=== PATIENT | male | born 1945 ===

== ENCOUNTER 2024-11-02 05:16 | Day surgery (SDC) | payer OTHER ==
[2024-10-25 07:03] LABS: HEMATOCRIT 39.1 % (39.0-48.0); HEMOGLOBIN 12.9 g/dL (13-16.00); MEAN CELL VOLUME 85.3 fL (80.0-100.00); MEAN CORPUSCULAR HEMOGLOBIN 28.2 pg (27.00-32.0); MEAN CORPUSCULAR HGB CONC 33.1 g/dl (32.0-36.0); PLATELET COUNT 163 K/uL (150-450); RED BLOOD COUNT 4.58 M/uL (4.00-6.00); RED CELL DISTRIBUTION WIDTH 15.4 % (11.5-14.5)
[2024-10-25 07:20] LABS: URINE APPEARANCE Clear; URINE BILIRRUBIN Negative (NEGATIVE); URINE BLOOD Negative; URINE COLOR Yellow; URINE GLUCOSE Negative (NEGATIVE); URINE KETONE Negative (NEGATIVE); URINE LEUKOCYTE Negative; URINE NITRATE Negative; URINE PROTEIN Negative (NEGATIVE); URINE UROBILINOGEN 0.2 E.U./dl
[2024-10-25 07:21] LABS: URINE RBC 2.4 uL (0.0-20.8)
[2024-10-25 07:30] VITALS: BP 147/80
[2024-10-25 07:31] LABS: URINE BACTERIA 0 uL (0.0-1933); URINE WBC 0.3 uL (0.0-23.2)
[2024-10-25 08:00] LABS: PROTHROMBIN TIME 10.9 SECONDS (9.0-11.5)
[2024-10-25 08:18] LABS: CALCIUM 9.5 mg/dL (8.5-10.1); CREATININE SERUM 0.85 mg/dL (0.70-1.30); GFR 86.51; POTASSIUM 4.47 mEq/L (3.5-5.1)
[~2024-11-02] VITALS: Ht 177.8 cm; Wt 84.8 kg
[~2024-11-02 05:16] MED LIST: ASA81 MG PO; COZAAR50 MG PO; CRESTOR40 MG; DIURETICO; HYDROCHLOROT; METFORMIN HCL1000 M2 PO; NIFEDIPINE20 MG; TIROSINT25 MCG PO; [UNRECOGNIZED DRUG - OTHER]
[2024-11-02] MEDS ORDERED: CEFAZOLIN SODIUM 1,000 MG VIAL IV ONE (13:15)
== END 2024-11-02 14:45 | disposition home or self-care (01) ==
LOC: CIR.AMB 05:16
PROVIDERS: ATTEND Surgery Surgery of the Hand
DX: M67.843 Other specified disorders of tendon, right hand (principal); M65.342 Trigger finger, left ring finger; I10 Essential (primary) hypertension; E78.5 Hyperlipidemia, unspecified; E11.9 Type 2 diabetes mellitus without complications; E03.8 Other specified hypothyroidism; M19.90 Unspecified osteoarthritis, unspecified site